=== PATIENT | female | born 1965 | race African-American/Black ===

== ENCOUNTER 2018-05-22 01:15 | Emergency (ER) | payer OTHER ==
[~2018-05-22] VITALS: Ht 162.6 cm; Wt 79.2 kg
[~2018-05-22 01:15] MED LIST: QUET25TA; RANI75TA13
[2018-05-22 01:19] VITALS: BP 123/97; PULSE 83; RESP 18; Ht 162.6 cm; Wt 79.2 kg
[2018-05-22] MEDS ORDERED: morphine 4 MG/ML VIAL IM STA (05:26)
[2018-05-22] MEDS ORDERED: KETOROLAC 30 MG INJ IM STA (05:26)
--- NOTE | 2018-05-22 05:33 | ERD ---
ER Documentation Chief Complaint Chief Complaint pain both legs/feet on and off x 2 years HPI This is a 53-year-old female presents emergency department with complaints of bilateral lower extremity pain. Stated that her pain is been going on for about 2 years. Patient is asking for a prescription for Percocet. Patient stated that she has been walking for couple of hours. Denies any trauma. LMP: Denies headache, head injury, loss of consciousness, dizziness, neck pain, neck stiffness, throat pain, difficulty swallowing, difficulty breathing lying flat, shoulder pain, chest pain, back pain, abdominal pain, nausea, vomiting, constipation, diarrhea, urinary symptoms, or possibility being , loss of bowel and bladder control, trauma, injury, falls, difficulty walking due to pain, numbness or tingling sensation, calf pain, recent travel, recent major surgery in the last 3 weeks, calf pain, recent long travel, recent exposure to any illness, recent antibiotic use in the last 3 months, fever, chills, seizures. Past medical history: Surgical history: Social: Denies smoking, use of alcoholic beverages, use of illegal drugs. ROS All systems reviewed and are negative except as per history of present illness. Medications Home Meds Active Scripts Cyclobenzaprine Hcl* (Cyclobenzaprine Hcl*) 10 Mg Tablet, 10 MG PO TID PRN for MUSCLE SPASMS, #15 TAB Prov:DANGILABANLESAR F 05/22/18 Ibuprofen* (Motrin*) 800 Mg Tab, 800 MG PO Q8 PRN for PAIN AND OR ELEVATED TEMP, #20 TAB Prov:DANGILABANLESAR F 05/22/18 Reported Medications Quetiapine Fumarate* (Seroquel*) 25 Mg Tablet 03/18/10 Ranitidine Hcl* (Zantac*) 75 Mg Tablet 03/18/10 Allergies Allergies: Uncoded Allergies: PCN (Allergy, Mild, 03/18/10) PMhx/Soc History of Surgery: Yes (tubal ligation) Anesthesia Reaction: No Hx Neurological Disorder: No Hx Respiratory Disorders: Yes (asthma) Hx Cardiac Disorders: No Hx Psychiatric Problems: No Hx Miscellaneous Medical Probl: No Hx Alcohol Use: Yes (ocassional) Hx Substance Use: No Hx Tobacco Use: No Smoking Status: Never smoker Physical Exam Vitals Physical Exam Const: No acute distress Head: Atraumatic Eyes: Normal Conjunctiva ENT: Normal External Ears, Nose and Mouth. Neck: Full range of motion. No meningismus. Resp: Clear to auscultation bilaterally Cardio: Regular rate and rhythm, no murmurs Abd: Soft, non tender, non distended. Normal bowel sounds Skin: No petechiae or rashes Back: No midline or flank tenderness Ext: No cyanosis, or edema. No calf tenderness bilaterally. Good and full range of motion of bilateral knees. Bilateral hips are stable and unremarkable. Able to bear weight on left lower extremity. Able to bear weight on right lower extremity. Positive straight leg test bilaterally. Capillary refills to lower extremities are less than 2 seconds. No neurovascular deficit. No pitting edema. No signs of trauma. Sensation is intact. Ambulatory with steady gait. Neur: Awake and alert. No neurological deficit.. Psych: Normal Mood and Affect Results 24 hrs Laboratory Tests Test 05/22/18 05:32 05/22/18 05:54 Bedside Urine pH (LAB) 7.0 Bedside Urine Protein (LAB) 1+ Bedside Urine Glucose (UA) Negative Bedside Urine Ketones (LAB) Negative Bedside Urine Blood Trace-intact Bedside Urine Nitrite (LAB) Negative Bedside Urine Leukocyte Esterase (L Negative POC Beta HCG, Qualitative NEGATIVE Current Medications Medications Dose Sig/Homar Start Time Status Last (Trade) Ordered Route PRN Stop Time Admin Dose Reason Admin Ketorolac 30 mg ONCE STAT 05/22/18 DC 05/22/18 Tromethamine IM 05:26 05:44 (Toradol) 05/22/18 05:27 Morphine 4 mg ONCE STAT 05/22/18 DC 05/22/18 Sulfate IM 05:26 05:43 (morphine) 05/22/18 05:27 Procedures/MDM Diagnostic tests: Clinical exam. POC urine : Negative. POC urine dipstick: Reviewed. Treatment: Toradol IM. Morphine IM. Re-evaluation: Denies lower extremity pain. No neurovascular deficit. Ambulatory with steady gait. Differential diagnosis I have low suspicion for DVT, fracture, CHF, compartment syndrome. Final diagnosis: Chronic pain. Prescription: Motrin. Flexeril. Follow-up with PCP in the next 24-48 hours. Follow-up with your pain specialist in the next 24-48 hours. Come back here in the emergency department for any new symptoms or any worsening symptoms. All questions and concerns were answered. Patient and family members verbalized understanding and agreed with plan of care. Hemodynamically stable on discharge. Departure Diagnosis: Primary Impression: Chronic pain Additional Impression: Sciatica Condition: Stable Additional Instructions: Follow-up with PCP in the next 24-48 hours. Follow-up with your pain specialist in the next 24-48 hours. Come back here in the emergency department for any new symptoms or any worsening symptoms. CARRINGTON GLASS May 22, 2018 05:33
[2018-05-22] MEDS ORDERED: IBUP800T48 PO (05:48)
[2018-05-22] MEDS ORDERED: CYCL10TA7 PO (05:49)
== END 2018-05-22 06:33 | disposition home or self-care (01) ==
LOC: FTE 01:15
DX: G89.29 Other chronic pain (principal); M54.30 Sciatica, unspecified side; J45.909 Unspecified asthma, uncomplicated
CPT/HCPCS: 81003; 81025; J1885; J2270; 96372